=== PATIENT | male | born 1970 | race Caucasian/White ===

== ENCOUNTER 2019-12-30 18:54 | Emergency (ER) | payer OTHER, SELFPAY ==
[2019-12-30 19:02] VITALS: BP 134/92; PULSE 75; RESP 17; TEMP 36.7; O2SAT 96; BMI 23.1
[2019-12-30 19:23] VITALS: BP 134/92; PULSE 75; RESP 17; TEMP 36.7; O2SAT 96; BMI 23.1
--- NOTE | 2019-12-30 19:29 | [facility].EDUTC ---
[facility] [place] Disposition Clinical Impression: Hidradenitis suppurativa Disposition: Home, Self-Care Condition on Discharge: Good Instructions: Hidradenitis Suppurativa, Clindamycin Topical, Doxycycline Additional Instructions: Make sure to clean area under arm multiple times through out the day with antibacterial soap and water *Take medication as prescribed *FOllow up with Family doctor if no improvement or any worsening of symptoms Return if needed Warm compresses to arm pit may help with relief of pain in arm pits Straight to ER if any life threatening Prescriptions: clindamycin HCL [Clindamycin HCl 300mg Cap] 300 mg PO Q8 10 Days #30 cap Transmission Status: Pending to [id number] Referrals: Kaela Rowe APRN [Primary Care Provider] - As needed Time of Disposition: 19:48 Medical Decision Making - Ravindra Inquiry Pt receiving controlled substance: No Ravindra was queried for this patient: No Vital Signs: 12/30/19 19:02 12/30/19 19:23 Temperature 98.0 F 98.0 F Temperature Source Oral Oral Pulse Rate [Right Brachial] 75 75 Respiratory Rate 17 17 Blood Pressure [Right Arm] 134/92 H 134/92 H Blood Pressure Mean [Right Arm] 106 106 Blood Pressure Source [Right Arm] Automatic Cuff Automatic Cuff Blood Pressure Position [Right Arm] Supine Sitting 02 Sat by Pulse Oximetry 96 96 Oxygen Delivery Method Room Air Room Air [facility] [place] HPI - General Stated complaint: Heat bumps under arm pits Time Seen by Provider: 12/30/19 19:30 Mode of Arrival: Ambulatory Source of Information: Patient Limitations: No Limitations Description of Symptoms (Recalled from Triage Doc. by RN): bumps under arm casas HEENT Symptoms (Recalled from RN notes): No Resp Symptoms (Recalled from RN notes): No Skin Symptoms (Recalled from RN notes): Yes MS Symptoms (Recalled from RN notes): No Functional Status (Recalled from RN notes): wnl - History of Present Illness Provider Complaint: Patient states that he works outside alot and noticed he was having some swollen lymph nodes under his right arm pit States that now he noticed it was like it was moving to his left State that it hurts when he puts his arms down and areas are red and irritated and hurts when he puts his arms down. States that he was worried that it was getting infected - Related Data Previous Rx's Medication Instructions Recorded clindamycin HCL [Clindamycin HCl 300 mg PO Q8 10 Days #30 cap 12/30/19 300mg Cap] Allergies Allergy/AdvReac Type Severity Reaction Status Date / Time niacin Allergy Verified 12/30/19 19:27 - Worker's Comp Is this a Worker's Comp case?: No [facility] History - Hepatitis A Screen Drug use history?: No High risk sexual behaviors?: No History of sexually transmitted infection?: No Currently employed?: No Childcare worker?: No Do you have indoor plumbing?: Yes Do you have electricity?: Yes Attestation statement:: This patient has been screened for Hepatitis A risk factors. I have reviewed the patient's past medical history: Yes Medical History: Reports:: Diabetes Mellitus Type 2 - Social History Educational Level: Completed High School Smoking Status: Current every day smoker # Packs/Day (cigarettes): 1 Alcohol Intake: never Occupational Status: other Housing: house ROS Obtained: Yes All systems reviewed & no additional complaints, Yes Systems reviewed as appropriate & no additional complaints - Constitutional Constitutional: Reports system reviewed and no additional complaints, except as docu, Denies body ache, Denies chills, Denies fever(s) - Integumentary/Breasts Skin/Breast: Reports other (swollen areas under his left arm pit) - Neurologic Neurologic: Reports system reviewed and no additional complaints, except as docu Physical Exam - General General appearance: alert, in no apparent distress - Respiratory Respiratory exam: Present: normal lung sounds bilaterally. Absent: respiratory distress
[2019-12-30 19:56] VITALS: BP 134/92; PULSE 75; RESP 17; TEMP 36.7; O2SAT 96
== END 2019-12-30 19:57 | disposition home or self-care (01) ==
LOC: ER 19:06 → UTC 19:09
PROVIDERS: Emergency Provider Nurse Practitioner; PCP Nurse Practitioner
DX: L73.2 Hidradenitis suppurativa (principal); E11.9 Type 2 diabetes mellitus without complications; F17.210 Nicotine dependence, cigarettes, uncomplicated
CPT/HCPCS: 99201